=== PATIENT | male | born 1970 | race Hispanic/Latino ===

== ENCOUNTER 2018-07-29 21:59 | Emergency (ER) | payer OTHER ==
[~2018-07-29] VITALS: Ht 172.7 cm; Wt 145.1 kg
--- OUTSIDE RECORDS SUMMARY | 2018-07-29 22:02 | XMS REPORT | Clinical Summary ---
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 Active nitroglycerin Place 1 spray 0 (NITROLINGUAL) 400 under the mcg/spray spray tongue. Active Problems Not on file Social History Date Tobacco Use Types Packs/Day Years Used Never Smoker Alcohol Use Drinks/Week oz/Week Comments Yes 2 Sex Assigned at Date Recorded Not on file Industry Job Start Date Occupation Not on file Not on file Not on file Travel End Travel History Travel Start No recent travel history available. Last Filed Vital Signs Not on file Plan of Treatment Health Maintenance Due Date Last Done Comments INFLUENZA VACCINE 02/02/2018 Results Not on fileafter 07/28/2017 Insurance Payer Benefit Subscriber ID Type Phone Address Plan / Group [facility] MEDICAID [facility] xxxxxxxxx HMO COMM STAR+ [employer] (Home) [place] [address] Advance Directives Patient has advance care planning documents on file. For more information, ranel mccray contact: Colton Christianson [address] [place] [phone]
--- OUTSIDE RECORDS SUMMARY | 2018-07-29 22:02 | XMS REPORT | Clinical Summary ---
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 Active CALCIUM ORAL Take by 0 mouth. Active multivitamin per tablet Take 1 tablet 0 by mouth daily. Active esomeprazole (NEXIUM) 40 Take 40 mg by 0 MG capsule mouth daily. Active Problems Problem Noted Date Unstable angina 11/10/2016 Abnormal stress test 11/10/2016 Social History Date Tobacco Use Types Packs/Day Years Used Never Smoker Alcohol Use Drinks/Week oz/Week Comments Yes occasionally Sex Assigned at Date Recorded Not on file Industry Job Start Date Occupation Not on file Not on file Not on file Travel End Travel History Travel Start No recent travel history available. Last Filed Vital Signs Not on file Plan of Treatment Not on file Results Not on fileafter 07/28/2017 Insurance Payer Benefit Subscriber ID Type Phone Address Plan / Group MEDICAID - MEDICAID [facility] xxxxxxxxx Medicaid CARE COMM STAR Contracted PLAN Advance Directives For more information, please contact: [facility] [address] [place] [address] Date Inactivated Comments Code Status Date Activated 11/10/2016 5:47 PM Full Code 11/10/2016 6:39 AM This code status was determined by: Patient
--- OUTSIDE RECORDS SUMMARY | 2018-07-29 22:03 | XMS REPORT | Continuity of Care Document ---
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 [facility] Bipolar affective disorder, currently depressed, moderate Active 06/16/2002 Problem 12/19/2016 [facility] GERD - Gastro-esophageal reflux disease Active 06/16/1999 Problem 12/19/2016 [facility] Final: Unspecified abdominal pain 12/19/2016 [facility] DM - Diabetes mellitus Active Problem 12/19/2016 [facility] Gout Active Problem 12/19/2016 [facility] HTN - Hypertension Active Problem 12/19/2016 [facility] UNSPECIFIED ABDOMINAL PAIN Active [facility] BARIATRIC SURGERY STATUS Active [facility] VOMITING, UNSPECIFIED Active [facility] Medications Medication Details Route Status Patient Instructions Ordering Provider Order Date Source remove patch 1 patch, Route: TOP, Drug form: ERFILM, Q72H, Start date: 12/16/16 17:00:00 CDT, Duration: 30 day, Stop date: 01/12/17 17:00:00 CDT Inactive 12/16/2016 [facility] Esomeprazole 20 MG Enteric Coated Capsule [Nexium] 20 mg=1 cap, PO, Daily, 0 Refill(s) Active 12/14/2016 [facility] 72 HR Scopolamine 0.0139 MG/HR Transdermal Patch 1 patch, Route: TOP, Drug Form: ERFILM, Dosing Weight 145.455, kg, Q72H, PRN Nausea & Vomiting, Start date: 12/13/16 16:53:00 CDT, Duration: 30 day, Stop date: 01/12/17 16:52:00 CDTNotes: Change patch every 72 hours (Same as: Transderm- Scop) No Longer Active 12/13/2016 [facility] tramadol hydrochloride 50 MG Oral Tablet 100 mg, 2 tab, Route: PO, Drug form: TAB, Q6H, Dosing Weight 145.455, kg, Priority: NOW, Start date: 12/13/16 16:52:00 CDT, Duration: 30 day, Stop date: 01/12/17 12:00:00 CDTNotes: Not to exceed 400mg/day. (Same As: Ultram) No Longer Active 12/13/2016 [facility] Morphine 2 mg, 1 mL, Route: IVP, Drug form: INJ, Q4H, Dosing Weight 145.455, kg, PRN Pain Score 7-10, Start date: 12/13/16 16:51:00 CDT, Duration: 30 day, Stop date: 01/12/17 16:50:00 CDTNotes: (Same as:MORPhine Sulfate) No Longer Active 12/13/2016 [facility] Ofirmev 1,000 mg, 100 mL, Route: IV, Drug form: INJ, Q6H, Dosing Weight 145.455, kg, for > or=50 kg, Priority: NOW, Start date: 12/13/16 16:50:00 CDT, Duration: 48 hr, Stop date: 12/15/16 12:00:00 CDTNotes: Infuse over 15 minutes Do not exceed 4gm/day of acetaminophen MEDICATION WASTE Product Size: 1000 mg Product Wasted: ___ mg No Longer Active 12/13/2016 [facility] Dicyclomine 20 mg, 2 mL, Route: IM, Drug form: INJ, Q6H- 02, Dosing Weight 262, kg, Start date: 12/13/16 14:30:00 CDT, Duration: 2 day, Stop date: 12/15/16 14:00:00 CDTNotes: (Same as: Bentyl) No Longer Active 12/13/2016 [facility] Lactated Ringers 1,000 mL 1,000 mL, Rate: 100 ml/hr, Infuse over: 10 hr, Route: IV, Dosing Weight 262 kg, Total Volume: 1,000, Start date: 12/13/16 13:50:00 CDT, Duration: 30 day, Stop date: 01/12/17 13:49:00 CDT No Longer Active 12/13/2016 [facility] Zofran 4 mg, Route: IVP, Drug form: INJ, ONCE, Dosing Weight 262, kg, Priority: STAT, Start date: 12/13/16 13:04:00 CDT, Stop date: 12/13/16 13:04:00 CDT Inactive 12/13/2016 [facility] Famotidine 20 mg, 2 mL, Route: IVP, Drug form: INJ, ONCE, Dosing Weight 262, kg, Priority: STAT, Start date: 12/13/16 8:30:00 CDT, Stop date: 12/13/16 8:30:00 CDTNotes: (Same as: Pepcid) Can be dilute in 5-10cc NS IVP: Slow IV push over at least 2 minutes. Inactive 12/13/2016 [facility] Ondansetron 4 mg, 2 mL, Route: IVP, Drug form: INJ, ONCE, Dosing Weight 262, kg, Priority: STAT, Start date: 12/13/16 8:30:00 CDT, Stop date: 12/13/16 8:30:00 CDTNotes: (Same as: Zofran) MEDICATION WASTE Product Size: 4 mg Product Wasted: ___ mg Inactive 12/13/2016 [facility] Iohexol 130 mL, Route: IVP, Drug Form: SOLN, Dosing Weight 262, kg, ONCALL, STAT, Start date: 12/13/16 8:24:00 CDT, Duration: 1 doses or times, Dose=2.2ml/kg, Max ytzl=345lm -- "To be infused by Radiology Staff ONLY" Inactive 12/13/2016 [facility] Hydromorphone 1 mg, Route: IVP, ONCE, Dosing Weight 262, kg, Priority: STAT, Start date: 12/13/16 7:41:00 CDT, Stop date: 12/13/16 7:41:00 CDT Inactive 12/13/2016 [facility] Metoclopramide 10 mg, 2 mL, Route: IVP, Drug form: INJ, ONCE, Dosing Weight 262, kg, Priority: STAT, Start date: 12/13/16 7:23:00 CDT, Stop date: 12/13/16 7:23:00 CDTNotes: (Same as: Reglan) Inactive 12/13/2016 [facility] Sodium Chloride 0.154 MEQ/ML Injectable Solution 1,000 mL, 1000 ml/hr, Infuse Over: 1 hr, Route: IV, 1,000, Drug form: INJ, ONCE, Priority: STAT, Dosing Weight 262 kg, Start date: 12/13/16 5:04:00 CDT, Duration: 1 doses or times, Stop date: 12/13/16 5:04:00 CDT Inactive 12/13/2016 [facility] Hydromorphone 1 mg, 0.5 mL, Route: IVP, Drug form: INJ, ONCE, Dosing Weight 262, kg, Priority: STAT, Start date: 12/13/16 5:04:00 CDT, Stop date: 12/13/16 5:04:00 CDTNotes: Same as: Dilaudid Inactive 12/13/2016 [facility] Ondansetron 4 mg, 2 mL, Route: IVP, Drug form: INJ, ONCE, Dosing Weight 262, kg, Priority: STAT, Start date: 12/13/16 5:04:00 CDT, Stop date: 12/13/16 5:04:00 CDTNotes: (Same as: Zofran) MEDICATION WASTE Product Size: 4 mg Product Wasted: ___ mg Inactive 12/13/2016 [facility] Allergies, Adverse Reactions, Alerts Substance Category Reaction Severity Reaction type Status Date Reported Comments Source Immunizations Immunization Date Given Site Status Last Updated Comments Source Results Order Name Results Value Reference Range Date Interpretation Comments Source Abdomen AP DX Abdomen AP DX EXAM: XR ABDOMEN 1 VIEW DATE: 12/16/2016 9:00 AM CDT INDICATION: evaluate PSBO - evaluate PSBO COMPARISON: 12/15/2016, 0726 hours TECHNIQUE: AP view of the abdomen. FINDINGS: Again seen mildly gas distended small bowel loops in the left flank region, measuring 4.2 cm caliber previously measured 4.4 cm. Bowel: Normal caliber colon with gas seen in the rectosigmoid. Solid organs: No abnormal mass or organomegaly seen. No abnormal calcifications found. Bones: Unremarkable. IMPRESSION: Mildly gas distended small bowel loops with gas seen in the distal rectosigmoid suggesting ileus, improved from prior exam. 12/16/2016 - - Read by: Ned Her MD Dictated Date/time: 12/16/16 09:24 Electronically Signed by: Ned Her MD 12/16/16 09:25 FINAL REPORT [facility] Abdomen AP DX Abdomen AP DX EXAM: XR ABDOMEN 1 VIEW DATE: 12/15/2016 9:00 AM CDT INDICATION: evaluate PSBO - evaluate PSBO COMPARISON: 12/14/2016 TECHNIQUE: AP view of the abdomen. FINDINGS: Nasogastric suction tube sidehole in the fundus of the stomach. Bowel: Again seen mildly dilated proximal jejunal loops in the left upper quadrant and flank region measuring up to 4.4 cm in caliber, previously measured up to 5.2 cm. Normal caliber colon is noted with gas seen in the distal rectosigmoid. Solid organs: No abnormal mass or organomegaly seen. No abnormal calcifications found. Bones: Unremarkable. IMPRESSION: Interval improvement in small bowel ileus, the dilated proximal jejunal loops measuring up to 4.4 cm, previously 5.2 cm. 12/15/2016 - - Read by: Ned Her MD Dictated Date/time: 12/15/16 09:26 Electronically Signed by: Ned Her MD 12/15/16 09:28 FINAL REPORT [facility] Abdomen AP DX Abdomen AP DX EXAM: XR ABDOMEN 1 VIEW DATE: 12/14/2016 7:20 AM CDT INDICATION: Abdominal pain, acute - partial small bowel obstruction on CT ADDITIONAL INFORMATION: None. COMPARISON: Abdomen radiograph 12/13/2016, CT abdomen pelvis 12/13/2016 TECHNIQUE: AP view of the abdomen. FINDINGS: Lines, tubes and hardware: NG tube tip projects over the gastric antrum with the sidehole within the gastric lumen. Lower thorax: Unremarkable where visualized. Bowel: Persistent dilatation of small bowel loops with the largest measuring 5.5 cm, unchanged from yesterday. Differential air-fluid levels are seen in multiple locations. Residual enteric contrast from the contrast-enhanced CT on 12/13/2016 is now seen within the nondilated transverse and descending colon. Other abdominal organs: Minimal hepatosplenomegaly. Calcifications: No abnormal calcifications. Bones: No acute abnormality. Extraabdominal soft tissues: Normal. IMPRESSION: 1. Persistent, improving small bowel dilatation with differential air-fluid levels. Enteric contrast is seen within the colon, consistent with partial small bowel obstruction. 12/14/2016 - - This report was dictated by a Intelligence Officer/Fellow. I have personally reviewed the images as well as the Resident's interpretation and agree with the findings. Read by: Major Cabrera MD Resident: Major Cabrera MD Dictated Date/time: 12/14/16 09:58 Electronically Signed by: Bea Ortiz 12/14/16 12:09 FINAL REPORT [facility] CHEM PANEL Magnesium Lvl 2.6 mg/dL 1.8 - 2.4 12/14/2016 [facility] CHEM PANEL Phosphorus 3.5 mg/dL 2.5 - 4.5 12/14/2016 [facility] CHEM PANEL eGFR 129 mL/min/1.73m2 12/14/2016 Result Comment: The eGFR is calculated using the CKD-EPI formula. In most young, healthy individuals the eGFR will be >90 mL/min/1.73m2. The eGFR declines with age. An eGFR of 60-89 may be normal in some populations, particularly the elderly, for whom the CKD-EPI formula has not been extensively validated. Use of the eGFR is not recommended in the following populations: Individuals with unstable creatinine concentrations, including patients and those with serious co-morbid conditions. Patients with extremes in muscle mass or diet. The data above are obtained from the National Kidney Disease Education Program (NKDEP) which additionally recommends that when the eGFR is used in patients with extremes of body mass index for purposes of drug dosing, the eGFR should be multiplied by the estimated BMI. [facility] CHEM PANEL AGAP 10.7 meq/L 10.0 - 20.0 12/14/2016 [facility] CHEM PANEL CO2 26 meq/L 24 - 32 12/14/2016 [facility] CHEM PANEL Calcium Lvl 8.2 mg/dL 8.5 - 10.5 12/14/2016 [facility] CHEM PANEL Potassium Lvl 3.7 meq/L 3.5 - 5.1 12/14/2016 [facility] CHEM PANEL Chloride Lvl 106 meq/L 95 - 109 12/14/2016 [facility] CHEM PANEL Sodium Lvl 139 meq/L 135 - 145 12/14/2016 [facility] CHEM PANEL Creatinine Lvl 0.52 mg/dL 0.50 - 1.40 12/14/2016 [facility] CHEM PANEL BUN 15 mg/dL 7 - 22 12/14/2016 [facility] CHEM PANEL Glucose Lvl 90 mg/dL 70 - 99 12/14/2016 [facility] HEMATOLOGY MPV 9.4 fL 7.4 - 10.4 12/14/2016 [facility] HEMATOLOGY Platelet 145 K/CMM 133 - 450 12/14/2016 [facility] HEMATOLOGY MCH 29.8 pg 27.0 - 31.0 12/14/2016 [facility] HEMATOLOGY RDW 13.4 % 11.5 - 14.5 12/14/2016 [facility] HEMATOLOGY MCHC 33.8 g/dL 32.0 - 36.0 12/14/2016 [facility] HEMATOLOGY RBC 3.53 M/CMM 4.70 - 6.10 12/14/2016 [facility] HEMATOLOGY MCV 88.1 fL 80.0 - 94.0 12/14/2016 [facility] HEMATOLOGY Hgb 10.5 g/dL 14.0 - 18.0 12/14/2016 [facility] HEMATOLOGY Hct 31.1 % 42.0 - 54.0 12/14/2016 [facility] HEMATOLOGY WBC 7.0 K/CMM 3.7 - 10.4 12/14/2016 [facility] HEMATOLOGY Basophils 0.3 % 0.0 - 1.0 12/14/2016 [facility] HEMATOLOGY Monocytes 10.3 % 2.0 - 12.0 12/14/2016 [facility] HEMATOLOGY Eosinophils 0.7 % 0.0 - 4.0 12/14/2016 [facility] HEMATOLOGY Lymphocytes # 2.0 K/CMM 1.0 - 5.5 12/14/2016 [facility] HEMATOLOGY Segs-Bands # 4.2 K/CMM 1.5 - 8.1 12/14/2016 [facility] HEMATOLOGY Segs 59.6 % 45.0 - 75.0 12/14/2016 [facility] HEMATOLOGY Lymphocytes 29.1 % 20.0 - 40.0 12/14/2016 [facility] HEMATOLOGY Monocytes # 0.7 K/CMM 0.0 - 0.8 12/14/2016 [facility] SPECIAL CHEMISTRY Hgb A1C 4.9 % <=5.6 % 12/14/2016 [facility] Abdomen 1 v for Placement DX Abdomen 1 v for Placement DX EXAM: XR ABDOMEN 1 FRONTAL VIEW DATE: 12/13/2016 3:31 PM CDT INDICATION: - NGT repositioned ADDITIONAL INFORMATION: None. COMPARISON: KUB and CT abdomen pelvis 12/13/2016 at 1347 hours TECHNIQUE: Single frontal view of the abdomen. FINDINGS: Lines and tubes: Advancement of NG tube with distal tip overlying the distal stomach. Lower thorax: Unremarkable where visualized. Bowel: Gaseous distention and dilatation of small bowel loops overlying the left upper quadrant measuring up to 5.3 cm. Solid organs: No abnormal mass or organomegaly seen. Calcifications: No abnormal calcifications found. Bones: Unchanged. IMPRESSION: 1. NG tube as detailed. 2. Persistent partial small bowel obstruction with transition point in the region of the mid ileum better seen on prior CT exam. 12/13/2016 - - Read by: Rony Salazar MD Dictated Date/time: 12/14/16 08:33 Electronically Signed by: Rony Salazar MD 12/14/16 08:36 FINAL REPORT [facility] Abdomen AP DX Abdomen AP DX EXAM: XR ABDOMEN 1 VIEW DATE: 12/13/2016 1:19 PM CDT INDICATION: - eval for ngt ADDITIONAL INFORMATION: None. COMPARISON: None. TECHNIQUE: Limited AP view of the upper abdomen. FINDINGS: The tip of nasogastric tube appears just past the gastroesophageal junction. Recommend further advancement by at least 7-10 cm. IMPRESSION: The tip of nasogastric tube is just past gastroesophageal junction. Recommend further advancement by at least 7-10 cm. [place] SECTION: ER 12/13/2016 - - This report was dictated by a Intelligence Officer/Fellow. I have personally reviewed the images as well as the Resident's interpretation and agree with the findings. Read by: Paula Medina MD Resident: Paula Medina MD Dictated Date/time: 12/13/16 14:30 Electronically Signed by: Levi Montgomery MD 12/13/16 14:38 FINAL REPORT [facility] BLOOD BANK RESULTS ABO/Rh O POS 12/13/2016 [facility] BLOOD BANK RESULTS Antibody Scrn Negative (12/13/16 6:27 AM) 12/13/2016 [facility] CARDIAC ENZYMES Troponin-I null 0.00 - 0.40 12/13/2016 [facility] CHEM PANEL Phosphorus 3.8 mg/dL 2.5 - 4.5 12/13/2016 [facility] CHEM PANEL Magnesium Lvl 2.4 mg/dL 1.8 - 2.4 12/13/2016 [facility] CHEM PANEL Lipase Lvl 127 unit/L 73 - 393 12/13/2016 [facility] CHEM PANEL Lactic Acid Lvl 1.0 mMol/L 0.5 - 2.2 12/13/2016 [facility] CHEM PANEL eGFR 105 mL/min/1.73m2 12/13/2016 Result Comment: The eGFR is calculated using the CKD-EPI formula. In most young, healthy individuals the eGFR will be >90 mL/min/1.73m2. The eGFR declines with age. An eGFR of 60-89 may be normal in some populations, particularly the elderly, for whom the CKD-EPI formula has not been extensively validated. Use of the eGFR is not recommended in the following populations: Individuals with unstable creatinine concentrations, including patients and those with serious co-morbid conditions. Patients with extremes in muscle mass or diet. The data above are obtained from the National Kidney Disease Education Program (NKDEP) which additionally recommends that when the eGFR is used in patients with extremes of body mass index for purposes of drug dosing, the eGFR should be multiplied by the estimated BMI. [facility] CHEM PANEL Calcium Lvl 8.4 mg/dL 8.5 - 10.5 12/13/2016 [facility] CHEM PANEL CO2 27 meq/L 24 - 32 12/13/2016 [facility] CHEM PANEL Chloride Lvl 106 meq/L 95 - 109 12/13/2016 [facility] CHEM PANEL Potassium Lvl 3.9 meq/L 3.5 - 5.1 12/13/2016 [facility] CHEM PANEL Creatinine Lvl 0.87 mg/dL 0.50 - 1.40 12/13/2016 [facility] CHEM PANEL Sodium Lvl 138 meq/L 135 - 145 12/13/2016 [facility] CHEM PANEL BUN 15 mg/dL 7 - 22 12/13/2016 [facility] CHEM PANEL Glucose Lvl 131 mg/dL 70 - 99 12/13/2016 [facility] CHEM PANEL AGAP 8.9 meq/L 10.0 - 20.0 12/13/2016 [facility] HEMATOLOGY Lymphocytes 21.3 % 20.0 - 40.0 12/13/2016 [facility] HEMATOLOGY Monocytes 5.1 % 2.0 - 12.0 12/13/2016 [facility] HEMATOLOGY Segs 72.5 % 45.0 - 75.0 12/13/2016 [facility] HEMATOLOGY Eosinophils 0.7 % 0.0 - 4.0 12/13/2016 [facility] HEMATOLOGY Segs-Bands # 4.8 K/CMM 1.5 - 8.1 12/13/2016 [facility] HEMATOLOGY Lymphocytes # 1.4 K/CMM 1.0 - 5.5 12/13/2016 [facility] HEMATOLOGY Monocytes # 0.3 K/CMM 0.0 - 0.8 12/13/2016 [facility] HEMATOLOGY Basophils 0.4 % 0.0 - 1.0 12/13/2016 [facility] HEMATOLOGY PTT 31.0 s 22.9 - 35.8 12/13/2016 [facility] HEMATOLOGY PT 13.6 s 12.0 - 14.7 12/13/2016 [facility] HEMATOLOGY INR 1.02 0.85 - 1.17 12/13/2016 [facility] HEMATOLOGY Hct 36.8 % 42.0 - 54.0 12/13/2016 [facility] HEMATOLOGY RBC 4.16 M/CMM 4.70 - 6.10 12/13/2016 [facility] HEMATOLOGY Hgb 12.2 g/dL 14.0 - 18.0 12/13/2016 [facility] HEMATOLOGY WBC 6.7 K/CMM 3.7 - 10.4 12/13/2016 [facility] HEMATOLOGY RDW 13.5 % 11.5 - 14.5 12/13/2016 [facility] HEMATOLOGY Platelet 164 K/CMM 133 - 450 12/13/2016 [facility] HEMATOLOGY MCH 29.3 pg 27.0 - 31.0 12/13/2016 [facility] HEMATOLOGY MCHC 33.1 g/dL 32.0 - 36.0 12/13/2016 [facility] HEMATOLOGY MCV 88.5 fL 80.0 - 94.0 12/13/2016 [facility] HEMATOLOGY MPV 8.9 fL 7.4 - 10.4 12/13/2016 [facility] SPECIAL CHEMISTRY Hgb A1C 5.1 % <=5.6 % 12/13/2016 [facility] CHEM PANEL Alk Phos 70 unit/L 39 - 136 12/13/2016 [facility] CHEM PANEL Bili Indirect 0.4 mg/dL 0.0 - 1.0 12/13/2016 [facility] CHEM PANEL Bili Total 0.5 mg/dL 0.2 - 1.3 12/13/2016 [facility] CHEM PANEL Bili Direct 0.1 mg/dL 0.0 - 0.3 12/13/2016 [facility] CHEM PANEL Globulin 4.5 g/dL 2.7 - 4.2 12/13/2016 [facility] CHEM PANEL ALT 15 unit/L 0 - 65 12/13/2016 [facility] CHEM PANEL AST 18 unit/L 0 - 37 12/13/2016 [facility] CHEM PANEL A/G Ratio 0.8 0.7 - 1.6 12/13/2016 [facility] CHEM PANEL Total Protein 8.1 g/dL 6.4 - 8.4 12/13/2016 [facility] CHEM PANEL Albumin Lvl 3.6 g/dL 3.5 - 5.0 12/13/2016 [facility] Abdomen/Pelvis w IV contrast CT Abdomen/Pelvis w IV contrast CT EXAM: CT ABDOMEN AND PELVIS CONTRAST DATE: 12/13/2016 5:04 AM CDT. INDICATION: - gastric sleeve . ADDITIONAL INFORMATION: None. COMPARISON: CT abdomen pelvis 07/10/2012. TECHNIQUE: Volumetric CT acquisition of the abdomen and pelvis with IV contrast. Axial, coronal and sagittal reconstructions. Postcontrast phases: Portal venous and delayed. IV contrast: Omnipaque 350, 130 mL. Oral contrast: Gastrografin, diluted. DLP: 09/04/2002 mGy-cm. FINDINGS: Lines and tubes: None. Lower thorax: Motion decreases sensitivity. There is mild posterior basal dependent atelectasis. Liver: Mildly enlarged measuring 17 cm in length. Biliary tree: No intra- or extrahepatic biliary ductal dilation. Gallbladder: Normal. No CT evidence of gallstones. Pancreas: Normal. Spleen: Mildly enlarged measuring 12.9 cm in length. Adrenals: Normal. Kidneys and ureters: No focal lesions are seen. No filling defects are seen within the opacified portions of the collecting system. Bladder: Minimal wall thickening. Reproductive organs: No CT abnormality. Gastrointestinal tract: Status post gastric sleeve with no evidence for extravasation. The GE junction has a small hiatal hernia and is filled with positive enteric contrast. The duodenum, jejunum that are opacified are unremarkable. There is dilatation of loops of distal jejunum in the left upper quadrant measuring up to 4.1 cm. There is fecalization of the distal small bowel. The transition point appears to occur on series 7, image 82 and series 6, images 79 and 82. . The distal small bowel is decompressed to the level of the terminal ileum. The terminal ileum is unremarkable. Radiopaque pills are seen within the cecal region. The colon is otherwise unremarkable. Appendix: Not seen. Peritoneum and retroperitoneum: Small amount of fluid within the pelvis. No other fluid collection. Lymph nodes: Normal. Vasculature: There is mild dilatation of the main portal vein. There is a minimal recanalized umbilical vein. No varices are seen. Bones: Normal. Soft tissues: There is a moderate-sized umbilical fat-containing hernia with the neck measuring 1.6 cm and the hernia sac measuring 1.5 x 4.5 cm. IMPRESSION: 1. Partial small bowel obstruction with the transition point seen approximately within the mid ileum seen best on series 7, image 82 and series 6, images 79 and 82. Proximal to the obstruction there is sacralization. 2. Mild portal vein dilatation with minimal hepatosplenomegaly and recanalization of the umbilical vein and may suggest mild portal hypertension. 3. Small amount of fluid within the pelvis. 4. Small umbilical fat-containing hernia. 5. Post gastric sleeve changes. 12/13/2016 - - This report was dictated by a Intelligence Officer/Fellow. I have personally reviewed the images as well as the Resident's interpretation and agree with the findings. Read by: Paula Medina MD Resident: Paula Medina MD Dictated Date/time: 12/13/16 08:12 Electronically Signed by: Joel Bingham MD 12/13/16 09:33 FINAL REPORT [facility] Chest 1view DX Chest 1view DX EXAM: XR CHEST 1 VIEW DATE: 12/13/2016 at 0531 hours. INDICATION: Chest pain. COMPARISON: Chest radiograph 07/02/2012 TECHNIQUE: AP chest FINDINGS: Lines and tubes: None. Lungs and pleura: No pulmonary or pleural based abnormality is identified. Heart and mediastinum: The heart size is normal for technique. The mediastinal contours are normal. Bones: No acute bony abnormality is identified. IMPRESSION: No acute cardiopulmonary abnormality. [place] SECTION: ER 12/13/2016 - - This report was dictated by a Intelligence Officer/Fellow. I have personally reviewed the images as well as the Resident's interpretation and agree with the findings. Read by: Josh Tran MD Resident: Josh Tran MD Dictated Date/time: 12/13/16 05:34 Electronically Signed by: Amita Roman MD 12/13/16 06:55 FINAL REPORT [facility] Vital Signs Vital Sign Value Date Comments Source Heart Rate 50 12/16/2016 [facility] Temperature Oral (F) 98.1 F 12/16/2016 [facility] Respitory Rate 18 12/16/2016 [facility] Systolic (mm Hg) 121 12/16/2016 [facility] Diastolic (mm Hg) 83 12/16/2016 [facility] Systolic (mm Hg) 121 12/16/2016 [facility] Diastolic (mm Hg) 84 12/16/2016 [facility] Respitory Rate 18 12/16/2016 [facility] Temperature Oral (F) 98.5 F 12/16/2016 [facility] Heart Rate 57 12/16/2016 [facility] Temperature Oral (F) 98.4 F 12/16/2016 [facility] Respitory Rate 20 12/16/2016 [facility] [facility] Heart Rate 55 12/16/2016 [facility] Systolic (mm Hg) 96 12/16/2016 [facility] Diastolic (mm Hg) 65 12/16/2016 [facility] Weight 145.455 12/13/2016 [facility] BMI Calculated 46.01 12/13/2016 [facility] Height 177.8 cm 12/13/2016 [facility] Encounters Location Location Details Encounter Type Encounter Number Reason For Visit Attending Provider ADM Date DC Date Status Source [facility] Inpatient [id number] Carmelitasheila Montelongo 12/13/2016 12/16/2016 [facility] Procedures Procedure Code Date Perfomer Comments Source Appendectomy [id number] 07/05/1979 [facility] Sleeve gastrectomy with duodenal switch [id number] [facility]
--- OUTSIDE RECORDS SUMMARY | 2018-07-29 22:03 | XMS REPORT | Summary of Care ---
Author Author [facility] Organization [facility] Address Unknown Phone Unavailable Encounter SAURABH Garcia(ARTIS) [id number] Date(s): 12/13/16 - 12/16/16 [facility] [address] [facility] provided by [facility] [employer] [facility] [employer] [place] [facility] [place] [address]- Final: Unspecified abdominal pain Discharge Disposition: Home or Self Care Attending Physician: Ambar Cabrera MD Admitting Physician: Carmelita Montelongo MD Vital Signs 1 2 3 Most recent to oldest [Reference Range]: 177.8 cm (12/13/16 2:52 PM) Height 98.1 DegF (12/16/16 4:05 PM) 98.5 DegF (12/16/16 12:27 PM) 98.4 DegF (12/16/16 7:49 AM) Temperature Oral [96.4-99.1 DegF] 121/83 mmHg (12/16/16 4:05 PM) 121/84 mmHg (12/16/16 12:27 PM) 96/65 mmHg (12/16/16 7:49 AM) Blood Pressure [90-140/60-90 mmHg] 18 BRMIN (12/16/16 4:05 PM) 18 BRMIN (12/16/16 12:27 PM) 20 BRMIN (12/16/16 7:49 AM) Respiratory Rate [14-20 BRMIN] 50 bpm *LOW* (12/16/16 4:05 PM) 57 bpm *LOW* (12/16/16 12:27 PM) 55 bpm *LOW* (12/16/16 7:49 AM) Peripheral Pulse Rate [60-100 bpm] 145.455 kg (12/13/16 2:52 PM) Weight 46.01 m2 (12/13/16 2:52 PM) Body Mass Index Problem List Condition Effective Dates Status Health Status Informant Bipolar affective 06/16/02 Active disorder, currently depressed, moderate(Confirmed) DM - Diabetes Active mellitus(Confirmed) GERD - 06/16/99 Active Gastro-esophageal reflux disease(Confirmed) Gout(Confirmed) Active HTN - Active Hypertension(Confirm ed) VRE(Confirmed)1, 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 Allergies, Adverse Reactions, Alerts Substance Reaction Severity Status NKDA Active Medications dicyclomine 20 mg, 2 mL, Route: IM, Drug form: INJ, Q6H-02, Dosing Weight 262, kg, Start jah e: 12/13/16 14:30:00 CDT, Duration: 2 day, Stop date: 12/15/16 14:00:00 CDT Notes: (Same as: Orville) Start Date: 12/13/16 Stop Date: 12/15/16 Status: Completed famotidine 20 mg, 2 mL, Route: IVP, Drug form: INJ, ONCE, Dosing Weight 262, kg, Priority: STAT, Start date: 12/13/16 8:30:00 CDT, Stop date: 12/13/16 8:30:00 CDT Notes: (Same as: Pepcid)Can be dilute in 5-10cc NS IVP: Slow IV push over at le ast 2 minutes. Start Date: 12/13/16 Stop Date: 12/13/16 Status: Completed hydromorphone 1 mg, Route: IVP, ONCE, Dosing Weight 262, kg, Priority: STAT, Start date: 12/13 7:41:00 CDT, Stop date: 12/13/16 7:41:00 CDT Start Date: 12/13/16 Stop Date: 12/13/16 Status: Completed hydromorphone 1 mg, 0.5 mL, Route: IVP, Drug form: INJ, ONCE, Dosing Weight 262, kg, Priority: STAT, Start date: 12/13/16 5:04:00 CDT, Stop date: 12/13/16 5:04:00 CDT Notes: Same as: Dilaudid Start Date: 12/13/16 Stop Date: 12/13/16 Status: Completed Lactated Ringers 1,000 mL 1,000 mL, Rate: 100 ml/hr, Infuse over: 10 hr, Route: IV, Dosing Weight 262 kg, Total Volume: 1,000, Start date: 12/13/16 13:50:00 CDT, Duration: 30 day, Stop d ate: 01/12/17 13:49:00 CDT Start Date: 12/13/16 Stop Date: 12/16/16 Status: Discontinued metoclopramide 10 mg, 2 mL, Route: IVP, Drug form: INJ, ONCE, Dosing Weight 262, kg, Priority: STAT, Start date: 12/13/16 7:23:00 CDT, Stop date: 12/13/16 7:23:00 CDT Notes: (Same as: Reglan) Start Date: 12/13/16 Stop Date: 12/13/16 Status: Completed morphine Sulfate 2 mg, 1 mL, Route: IVP, Drug form: INJ, Q4H, Dosing Weight 145.455, kg, PRN Pain Score 7-10, Start date: 12/13/16 16:51:00 CDT, Duration: 30 day, Stop date: 05/21 16:50:00 CDT Notes: (Same as:MORPhine Sulfate) Start Date: 12/13/16 Stop Date: 12/16/16 Status: Discontinued NexIUM OTC 20 mg oral delayed release capsule 20 mg=1 cap, PO, Daily, 0 Refill(s) Start Date: 12/14/16 Status: Ordered Ofirmev 1,000 mg, 100 mL, Route: IV, Drug form: INJ, Q6H, Dosing Weight 145.455, kg, for > or=50 kg, Priority: NOW, Start date: 12/13/16 16:50:00 CDT, Duration: 48 hr, Stop date: 12/15/16 12:00:00 CDT Notes: Infuse over 15 minutesDo not exceed 4gm/day of acetaminophen MEDICAT ION WASTE Product Size: 1000 mgProduct Wasted: ___ mg Start Date: 12/13/16 Stop Date: 12/15/16 Status: Completed Omnipaque 350mg/ml 130 mL, Route: IVP, Drug Form: SOLN, Dosing Weight 262, kg, ONCALL, STAT, Start date: 12/13/16 8:24:00 CDT, Duration: 1 doses or times, Dose=2.2ml/kg, Max dose =150ml -- "To be infused by Radiology Staff ONLY" Start Date: 12/13/16 Stop Date: 12/13/16 Status: Completed ondansetron 4 mg, 2 mL, Route: IVP, Drug form: INJ, ONCE, Dosing Weight 262, kg, Priority: S TAT, Start date: 12/13/16 8:30:00 CDT, Stop date: 12/13/16 8:30:00 CDT Notes: (Same as: Barbara) MEDICATION WASTE Product Size: 4 mgProduct Was zoila: ___ mg Start Date: 12/13/16 Stop Date: 12/13/16 Status: Completed ondansetron 4 mg, 2 mL, Route: IVP, Drug form: INJ, ONCE, Dosing Weight 262, kg, Priority: S TAT, Start date: 12/13/16 5:04:00 CDT, Stop date: 12/13/16 5:04:00 CDT Notes: (Same as: Barbara) MEDICATION WASTE Product Size: 4 mgProduct Was zoila: ___ mg Start Date: 12/13/16 Stop Date: 12/13/16 Status: Completed remove patch 1 patch, Route: TOP, Drug form: ERFILM, Q72H, Start date: 12/16/16 17:00:00 CDT, Duration: 30 day, Stop date: 01/12/17 17:00:00 CDT Start Date: 12/16/16 Stop Date: 12/16/16 Status: Discontinued scopolamine 1.5 mg transdermal film 1 patch, Route: TOP, Drug Form: ERFILM, Dosing Weight 145.455, kg, Q72H, PRN Sergio sea & Vomiting, Start date: 12/13/16 16:53:00 CDT, Duration: 30 day, Stop date: 01/12/17 16:52:00 CDT Notes: Change patch every 72 hours (Same as: Transderm-Scop) Start Date: 12/13/16 Stop Date: 12/16/16 Status: Discontinued Sodium Chloride 0.9% (Bolus) IV 1,000 mL, 1000 ml/hr, Infuse Over: 1 hr, Route: IV, 1,000, Drug form: INJ, ONCE, Priority: STAT, Dosing Weight 262 kg, Start date: 12/13/16 5:04:00 CDT, Aureliano n: 1 doses or times, Stop date: 12/13/16 5:04:00 CDT Start Date: 12/13/16 Stop Date: 12/13/16 Status: Completed tramadol 50 mg oral tablet 100 mg, 2 tab, Route: PO, Drug form: TAB, Q6H, Dosing Weight 145.455, kg, Priori ty: NOW, Start date: 12/13/16 16:52:00 CDT, Duration: 30 day, Stop date: 7 12:00:00 CDT Notes: Not to exceed 400mg/day. (Same As: Ultram) Start Date: 12/13/16 Stop Date: 12/16/16 Status: Discontinued Zofran 4 mg, Route: IVP, Drug form: INJ, ONCE, Dosing Weight 262, kg, Priority: STAT, S tart date: 12/13/16 13:04:00 CDT, Stop date: 12/13/16 13:04:00 CDT Start Date: 12/13/16 Stop Date: 12/13/16 Status: Completed Results BLOOD BANK RESULTS Most recent to 1 2 oldest [Reference Range]: ABO/Rh O POS *Unknown* (12/13/16 6:27 AM) Antibody Scrn Negative (12/13/16 6:27 AM) ELECTROLYTES Most recent to 1 2 oldest [Reference Range]: Sodium Lvl [135-145 139 mEq/L 138 mEq/L mEq/L] (12/14/16 3:52 AM) (12/13/16 5:42 AM) Potassium Lvl 3.7 mEq/L 3.9 mEq/L [3.5-5.1 mEq/L] (12/14/16 3:52 AM) (12/13/16 5:42 AM) Chloride Lvl [95-109 106 mEq/L 106 mEq/L mEq/L] (12/14/16 3:52 AM) (12/13/16 5:42 AM) CO2 [24-32 mEq/L] 26 mEq/L 27 mEq/L (12/14/16 3:52 AM) (12/13/16 5:42 AM) AGAP [10.0-20.0 10.7 mEq/L 8.9 mEq/L mEq/L] (12/14/16 3:52 AM) *LOW* (12/13/16 5:42 AM) CHEM PANEL Most recent to 1 2 oldest [Reference Range]: Creatinine Lvl 0.52 mg/dL 0.87 mg/dL [0.50-1.40 mg/dL] (12/14/16 3:52 AM) (12/13/16 5:42 AM) eGFR 129 mL/min/1.73m2 1 105 mL/min/1.73m2 2 *NA* *NA* (12/14/16 3:52 AM) (12/13/16 5:42 AM) BUN [7-22 mg/dL] 15 mg/dL 15 mg/dL (12/14/16 3:52 AM) (12/13/16 5:42 AM) Glucose Lvl [70-99 90 mg/dL 131 mg/dL mg/dL] (12/14/16 3:52 AM) *HI* (12/13/16 5:42 AM) Total Protein 8.1 g/dL [6.4-8.4 g/dL] (12/13/16 5:05 AM) Albumin Lvl [3.5-5.0 3.6 g/dL g/dL] (12/13/16 5:05 AM) Globulin [2.7-4.2 4.5 g/dL g/dL] *HI* (12/13/16 5:05 AM) A/G Ratio [0.7-1.6] 0.8 (12/13/16 5:05 AM) Calcium Lvl 8.2 mg/dL 8.4 mg/dL [8.5-10.5 mg/dL] *LOW* *LOW* (12/14/16 3:52 AM) (12/13/16 5:42 AM) Phosphorus [2.5-4.5 3.5 mg/dL 3.8 mg/dL mg/dL] (12/14/16 3:52 AM) (12/13/16 5:42 AM) Magnesium Lvl 2.6 mg/dL 2.4 mg/dL [1.8-2.4 mg/dL] *HI* (12/13/16 5:42 AM) (12/14/16 3:52 AM) ALT [0-65 unit/L] 15 unit/L (12/13/16 5:05 AM) AST [0-37 unit/L] 18 unit/L (12/13/16 5:05 AM) Alk Phos [39-136 70 unit/L unit/L] (12/13/16 5:05 AM) Bili Total [0.2-1.3 0.5 mg/dL mg/dL] (12/13/16 5:05 AM) Bili Direct [0.0-0.3 0.1 mg/dL mg/dL] (12/13/16 5:05 AM) Bili Indirect 0.4 mg/dL [0.0-1.0 mg/dL] (12/13/16 5:05 AM) Lipase Lvl [73-393 127 unit/L unit/L] (12/13/16 5:42 AM) Lactic Acid Lvl 1.0 mMol/L [0.5-2.2 mMol/L] (12/13/16 5:42 AM) 1Result Comment: The eGFR is calculated using the [...] from the National Kidney Disease Education Program ( NKDEP) which additionally recommends that when the eGFR is used in patients with extremes of body mass index for purposes of drug dosing, the eGFR should be mul tiplied by the estimated BMI. 2Result Comment: The eGFR is calculated using the [...] from the National Kidney Disease Education Program ( NKDEP) which additionally recommends that when the eGFR is used in patients with extremes of body mass index for purposes of drug dosing, the eGFR should be mul tiplied by the estimated BMI. CARDIAC ENZYMES Most recent to 1 2 oldest [Reference Range]: Troponin-I <0.02 ng/mL [0.00-0.40 ng/mL] (12/13/16 5:42 AM) SPECIAL CHEMISTRY Most recent to 1 2 oldest [Reference Range]: Hgb A1C [<=5.6 %] 4.9 % 5.1 % (12/14/16 3:52 AM) (12/13/16 5:42 AM) HEMATOLOGY Most recent to 1 2 oldest [Reference Range]: WBC [3.7-10.4 K/CMM] 7.0 K/CMM 6.7 K/CMM (12/14/16 3:52 AM) (12/13/16 5:42 AM) RBC [4.70-6.10 3.53 M/CMM 4.16 M/CMM M/CMM] *LOW* *LOW* (12/14/16 3:52 AM) (12/13/16 5:42 AM) Hgb [14.0-18.0 g/dL] 10.5 g/dL 12.2 g/dL *LOW* *LOW* (12/14/16 3:52 AM) (12/13/16 5:42 AM) Hct [42.0-54.0 %] 31.1 % 36.8 % *LOW* *LOW* (12/14/16 3:52 AM) (12/13/16 5:42 AM) MCV [80.0-94.0 fL] 88.1 fL 88.5 fL (12/14/16 3:52 AM) (12/13/16 5:42 AM) MCH [27.0-31.0 pg] 29.8 pg 29.3 pg (12/14/16 3:52 AM) (12/13/16 5:42 AM) MCHC [32.0-36.0 33.8 g/dL 33.1 g/dL g/dL] (12/14/16 3:52 AM) (12/13/16 5:42 AM) RDW [11.5-14.5 %] 13.4 % 13.5 % (12/14/16 3:52 AM) (12/13/16 5:42 AM) Platelet [133-450 145 K/CMM 164 K/CMM K/CMM] (12/14/16 3:52 AM) (12/13/16 5:42 AM) MPV [7.4-10.4 fL] 9.4 fL 8.9 fL (12/14/16 3:52 AM) (12/13/16 5:42 AM) Segs [45.0-75.0 %] 59.6 % 72.5 % (12/14/16 3:52 AM) (12/13/16 5:42 AM) Lymphocytes 29.1 % 21.3 % [20.0-40.0 %] (12/14/16 3:52 AM) (12/13/16 5:42 AM) Monocytes [2.0-12.0 10.3 % 5.1 % %] (12/14/16 3:52 AM) (12/13/16 5:42 AM) Eosinophils [0.0-4.0 0.7 % 0.7 % %] (12/14/16 3:52 AM) (12/13/16 5:42 AM) Basophils [0.0-1.0 0.3 % 0.4 % %] (12/14/16 3:52 AM) (12/13/16 5:42 AM) Segs-Bands # 4.2 K/CMM 4.8 K/CMM [1.5-8.1 K/CMM] (12/14/16 3:52 AM) (12/13/16 5:42 AM) Lymphocytes # 2.0 K/CMM 1.4 K/CMM [1.0-5.5 K/CMM] (12/14/16 3:52 AM) (12/13/16 5:42 AM) Monocytes # [0.0-0.8 0.7 K/CMM 0.3 K/CMM K/CMM] (12/14/16 3:52 AM) (12/13/16 5:42 AM) PT [12.0-14.7 13.6 seconds seconds] (12/13/16 5:42 AM) INR [0.85-1.17] 1.02 (12/13/16 5:42 AM) PTT [22.9-35.8 31.0 seconds seconds] (12/13/16 5:42 AM) Immunizations No data available for this section Procedures Procedure Date Related Diagnosis Body Site Appendectomy 1979 Sleeve gastrectomy with duodenal switch Social History Social History Type Response Alcohol Current, Type Beer. Frequency: 1-2 times per year. Smoking Status Never smoker; Ready to change: No; Concerns about tobacco use in household: No; Exposure to Tobacco Smoke None; Cigarette Smoking Last 365 Days No; Reg Smoking Cessation Counseling No Assessment and Plan Extracted from: Title: surgery Author: Scot Bustillo MD Date: 12/16/16 Impression and Plan PSBO has resolved. To be discharged home. He will f/u with me in 2 weeks. Extracted from: Title: History and Physical Author: Carmelita Montelongo MD Date: 12/13/16 Assessment/Plan 46 y/o Obese M smoker with DM type 2 (controlled by diet) presents with acute onset abdominal pain with nausea and vomiting, 2/2 partial small bowel obstruction. 1.Partial bowel obstruction - as seenon abdominal CT - place NG tube stat. - Once position confirmed on Xray, start intermittent suction. -start multimodal pain control with acetaminophen 1gm q6hrs, with dicyclomine - start bowel regimen with senna, colace and miralax (although patient reports regular BM this morning) - Keep NPO for now - start IVF with Ringer's lactate ul055ou/hr 2.Abdominal pain, acute - management as above Ordered: Admit/Condition 3.Vomiting -start zofran 4mgIVP q8hprn - NGT towall suctiononce placed Ordered: Admit/Condition 4.History of gastric restrictive surgery - Dr. Bustillo consulted. Will f/u recommendations - gastric sleevein January 2016 - NPO for now Ordered: Admit/Condition 5.Obesity - same as above 6.HTN - Hypertension - denies any hx of hypertension, although amlodipine and lisinoprilnoted on last labs - lifestyle modification advised - likely 2/2 pain at present. Controlpain as above 7.DM - Diabetes mellitus -diet controlled, noton any medications -HbA1c 5.1 - NPO for now 8.Smoker - counselled forcessation 9.Anemia - no active e/o bleed - continue to monitor H/H - outpatient w/u Prophylaxis b/l SCDs Disposition pending stabilization
--- OUTSIDE RECORDS SUMMARY | 2018-07-29 22:03 | XMS REPORT ---
Author Author [facility] Address Unknown Phone Unavailable Care Team Providers Care Wardrobe Custodian Name Role Phone ELIOT, NEHA GREENBERG Unavailable Unavailable Noman Blackmon Unavailable Unavailable Problems This patient has no known problems. Allergies, Adverse Reactions, Alerts This patient has no known allergies or adverse reactions. Medications This patient has no known medications. Results Test Description Test Time Test Comments Text Results Atomic Results Result Comments BASIC METABOLIC PANEL 2016-11-10 07:35:00 SODIUM (BEAKER) (test zkis=619) 141 meq/L 135-148 POTASSIUM (BEAKER) (test lufj=103) 3.8 meq/L 3.6-5.5 Specimen slightly hemolyzed CHLORIDE (BEAKER) (test chky=697) 108 meq/L 98-106 CO2 (BEAKER) (test arld=084) 23 meq/L 20-29 BLOOD UREA NITROGEN (BEAKER) (test mwdw=097) 14 mg/dL 10-26 CREATININE (BEAKER) (test rgep=407) 0.75 mg/dL 0.50-1.20 Specimen slightly hemolyzed GLUCOSE RANDOM (BEAKER) (test agxh=402) 90 mg/dL 70-110 CALCIUM (BEAKER) (test eolq=553) 8.7 mg/dL 8.5-10.5 EGFR (BEAKER) (test qqpc=8480) 113 mL/min/1.73 sq m ESTIMATED GFR IS NOT ACCURATE CREATININE CLEARANCE IN PREDICTING GLOMERULAR FILTRATION RATE. ESTIMATED GFR IS NOT APPLICABLE FOR DIALYSIS PATIENTS. [id number] 07:31:00* Test Item Value Reference Range Comments PARTIAL THROMBOPLASTIN TIME (BEAKER) (test miez=139) 21.8 seconds 25.8-34.5 PROTHROMBIN TIME/[id number] 07:29:00* Test Item Value Reference Range Comments PROTIME (BEAKER) (test xenk=558) 10.4 seconds 9.8-12.0 INR (BEAKER) (test msja=835) 1.0 <=5.9 RECOMMENDED COUMADIN/WARFARIN INR THERAPY RANGESSTANDARD DOSE: 2.0 - 3.0 Inclu fan: PROPHYLAXIS for venous thrombosis, systemic embolization; TREATMENT for twila ous thrombosis and/or pulmonary embolus.HIGH RISK: Target INR is 2.5-3.5 for pat ients with mechanical heart valves.CBC (HEMOGRAM ONLY)2016-11-10 07:16:00* Test Item Value Reference Range Comments WHITE BLOOD CELL COUNT (BEAKER) (test dwky=505) 6.9 K/ L 4.0-10.0 RED BLOOD CELL COUNT (BEAKER) (test ajeb=207) 4.06 M/ L 4.20-5.80 HEMOGLOBIN (BEAKER) (test awes=550) 12.0 GM/DL 13.0-16.8 HEMATOCRIT (BEAKER) (test iarv=976) 36.5 % 40.0-50.0 MEAN CORPUSCULAR VOLUME (BEAKER) (test gmfd=713) 89.9 fL 82.0-98.0 MEAN CORPUSCULAR HEMOGLOBIN (BEAKER) (test thth=985) 29.6 pg 27.0-33.0 MEAN CORPUSCULAR HEMOGLOBIN CONC (BEAKER) (test fkne=638) 32.9 GM/DL 32.0-36.0 RED CELL DISTRIBUTION WIDTH (BEAKER) (test nvug=016) 13.8 % 10.3-14.2 PLATELET COUNT (BEAKER) (test jwoc=805) 180 K/CU MM 150-430 MEAN PLATELET VOLUME (BEAKER) (test ohan=955) 11.6 fL 6.5-10.5 [place] [id number] 08:27:00>100,000 CFU/ML.^>100,000 CFU/ML.^LUrine culture 2016-11-05 08:27:00* Test Item Value Reference Range Comments Urine culture (test sxki=179-0) 4+ GRAM NEGATIVE RODS. Urine culture (test ashe=018-82) ESCHERICHIA COLI Urine culture (test xnli=061-8) Escherichia coli Trimethoprim/sulfamethoxazole susceptibility test by minimum inhibitory concentration (test qorc=393-2) Tetracycline susceptibility test by minimum inhibitory concentration (test hhhk=885-3) Nitrofurantoin susceptibility test by minimum inhibitory concentration (test delk=341-7) Amoxicillin/clavulanate susceptibility test by minimum inhibitory concentration (test code=20-8) Gentamycin susceptibility test by minimum inhibitory concentration (test ppbd=312-6) Ampicillin susceptibility test by minimum inhibitory concentration (test code=28-1) Cefazolin susceptibility test by minimum inhibitory concentration (test code=76-0) Cephalothin susceptibility test by minimum inhibitory concentration (test ypbe=797-6) Cefoxitin susceptibility test by minimum inhibitory concentration (test hcfn=799-5) Cefotaxime susceptibility test by minimum inhibitory concentration (test hemt=345-9) Cefuroxime susceptibility test by minimum inhibitory concentration (test jtsk=70667-7) Cefotetan susceptibility test by minimum inhibitory concentration (test nius=240-9) Levofloxacin susceptibility test by minimum inhibitory concentration (test qxwn=71889-3) Ceftriaxone susceptibility test by minimum inhibitory concentration (test baka=627-3) Ampicillin/sulbactam susceptibility test by minimum inhibitory concentration (test code=32-3) Aztreonam susceptibility test by minimum inhibitory concentration (test code=44-8) Ceftazidime susceptibility test by minimum inhibitory concentration (test zzaw=839-0) Ticarcillin/clavulanate susceptibility test by minimum inhibitory concentration (test bebf=015-5) Tobramycin susceptibility test by minimum inhibitory concentration (test semj=963-0) Piperacillin/tazobactam susceptibility test by minimum inhibitory concentration (test uedw=446-0) Cefepime susceptibility test by minimum inhibitory concentration (test xqiu=0175-1) Ciprofloxacin susceptibility test by minimum inhibitory concentration (test zqcp=889-0) Meropenem susc ZEINA (test yvug=8808-1) Amikacin susceptibility test by minimum inhibitory concentration (test code=12-5) Urine dipstick testing at nwclq-af-nyaw9086-05-02 20:46:00* Test Item Value Reference Range Comments Urine specific gravity measurement (test bzuq=9436-6) >1.030 1.005-1.030 Urine glucose detection (test ejrp=0046-1) Negative NEG Urine Ketones (test code=UKET) NEGATIVE NEG Urine blood detection (test ayjt=02613-7) TRACE NEG Urine pH (test yyec=4858-1) 6.0 5.0-7.0 Urinalysis with microscopy (test uccr=43569-6) 1+ NEG Urine nitrate measurement (test nvsf=64011-2) POSITIVE NEG Urine Leukocyte Esterase (test code=UESTR) TRACE NEG Comment Bed:2 CB TRACE NEG NEG TRACE POS 6.0 1+ Y >1.030Microscopic examination of [id number] 20:12:00* Test Item Value Reference Range Comments Urine WBC (test code=UWBC) 10-20 <5 Urine sediment erythrocyte count by microscopy (number/high power field) (test vccf=38785-6) <5 NONE SEEN Bacteria detection in urine sediment by light microscopy (test niba=30588-0) >50 NONE SEEN Sqamous Epithelial (test code=SQEP) 5-10 NONE SEEN Urinalysis with reflex to culture (test kfdh=28983-2) REFLEXED Comment Bed:2Basic Metabolic Tdgdo0410-48-01 19:06:00* Test Item Value Reference Range Comments Sodium level (test drnw=AZI7991) 145 meq/L 135-145 3.3 Chloride measurement (test mwhc=HIN0402) 108 meq/L 101-111 Bicarbonate (test code=CO2) 27 meq/L 21-31 Glucose measurement (test kirs=ZUB3929) 89 mg/dL 65-120 ADA Clinical Practice Recommendation: <100 mg/dl=Normal Fasting Glucose BUN Bld-mCnc (test xwjc=5223-4) 17 mg/dL 6-20 Creatinine measurement (test guoj=HYU6920) 0.85 mg/dL 0.61-1.24 The creatinine method used has been calibrated to be traceable to Isotope dilution Mass Spectrometry (IDMS). For more information: www.nkdep.nih.gov Estimated glomerular filtration rate (GFR) determination (test gnfw=36317-7) >90 mL =/>90 FOR CHRONIC KIDNEY DISEASE: GFR STAGE DESCRIPTION=/>90 STAGE 1 NORMAL--OR-- MINIMAL KIDNEY DAMAGE WITH NORMAL GFR 60-89 STAGE 2 MILD DECREASE IN GFR 30-59 STAGE 3 MODERATE DECREASE IN GFR 15-29 STAGE 4 SEVERE DECREASE IN GFR <15 STAGE 5 KIDNEY FAILURE The Glomerular Filtration Rate (GFR) has been calculated using the IDMS-Traceable MDRD Study Equation. Calcium Level (test code=CA) 9.0 mg/dL 8.5-10.5 Creatine Rtylgdgywrsot8599-64-45 19:06:00* Test Item Value Reference Range Comments Creatine Phosphokinase (test code=CPK) 181 [iU]/L 22-269 CKMB Creatine Kinase [id number] 19:06:00* Test Item Value Reference Range Comments CKMB Creatine Kinase MB (test code=CKMB) 3.5 ng/mL 0.3-4.0 Magnesium ljbmgwajzjn4979-05-52 19:06:00* Test Item Value Reference Range Comments Magnesium measurement (test uaja=82216-1) 2.3 mg/dL 1.8-2.5 Brain natriuretic peptide (BNP) tfsiljbyxui9419-05-78 18:46:00* Test Item Value Reference Range Comments Brain natriuretic peptide (BNP) measurement (test rjii=07676-4) 28 pg/mL <=100 Troponin (Emerg Dept Use Only)2016-11-03 18:44:00* Test Item Value Reference Range Comments Troponin (Emerg Dept Use Only) (test code=TROPED) 0.03 ng/mL <0.03 Comment Bed:2 Test Ordered to Rule Out VTE/DVT? NProthrombin time (PT) with international normalized ratio (INR)2016-11-03 18:40:00* Test Item Value Reference Range Comments PT Prothrombin Time (test code=PROTIME) 11.8 s 9.5-12.5 INR in Blood by Coagulation assay (test sepq=02436-0) 1.04 Monitor pts using INR value (not prothrombin time) INR Coumadin Therapy: Low Range (prophylaxis) 2.0-3.0 High Range (high risk of clot formation) 2.5-3.5 Test Ordered to Rule Out VTE/DVT? N Test Ordered to Rule Out VTE/DVT? N Test Ord ered to Rule Out VTE/DVT? N Test Ordered to Rule Out VTE/DVT? NPTT, Activated Partial [id number] 18:40:00* Test Item Value Reference Range Comments PTT, Activated Partial Thromb (test code=PTT) 20.9 s 24.3-36.9 Test Ordered to Rule Out VTE/DVT? N Test Ordered to Rule Out VTE/DVT? N Test Ord ered to Rule Out VTE/DVT? N Test Ordered to Rule Out VTE/DVT? NComplete blood count (CBC) with automated white blood cell (WBC) [id number] 18:25:00* Test Item Value Reference Range Comments White blood cell count (test djll=[id number]) 7.4 4.3-10.9 Blood erythrocytes count (number/volume) (test kimv=49526-6) 3.93 M/ul 4.33-5.43 Hemoglobin measurement (test gpky=UVL5032) 11.5 g/dL 13.6-17.9 Blood hematocrit (volume fraction) (test jjkj=39201-0) 34.6 % 39.6-49.0 MCV (test rcpf=06372-6) 87.9 fL 80-100 MCH (test uzbn=72392-3) 29.3 pg 27.0-35.0 MCHC (test code=MCHC) 33.3 g/dL 32.0-36.0 Platelets (test code=PLT) 169 152-406 Red Cell Distribution Width (test code=RDW) 14.0 % 12.1-15.2 Blood platelet mean volume (test ogzb=61953-2) 9.6 fL 7.6-11.3 Neutrophils % (test code=DIGNA%) 54.8 % 41.7-73.7 Lymphocytes/leuk NFr Bld (test gbun=14242-6) 37.4 % 15.3-44.8 Monocyte percentage (test ivlz=1356-9) 6.1 % 3.3-12.3 Eosinophil % (test stdt=200-8) 0.7 % 0-4.4 Basophil % (test cldl=33092-3) 1.0 % 0-1.3 Absolute neutrophil count (test zstk=201-6) 4.1 1.8-8.0 Absolute lymphocyte count (test szoz=50973-5) 2.8 0.7-4.9 Absolute monocyte count (test xdvb=187-3) 0.5 0.1-1.3 Absolute Eosinophils (test code=EOA) 0.1 0-0.5 Absolute Basophils (test code=BASA) 0.1 0-0.5
[2018-07-29 22:28] LABS: BASOPHILS % 0.4 % (0.0-1.0); EOSINOPHILS # (AUTO) 0.1 (0.0-0.4); EOSINOPHILS % 0.8 % (0.0-6.0); HEMATOCRIT 36.2 % (38.2-49.6); HEMOGLOBIN 12.2 g/dL (14.0-18.0); LYMPHOCYTES # (AUTO) 2.7 (1.0-3.2); LYMPHOCYTES % 35.6 % (18.0-39.1); MEAN CORPUSCULAR HGB CONC 33.7 g/dL (31-35); MONOCYTES # (AUTO) 0.5 (0.2-0.8); MONOCYTES % 6.1 % (4.4-11.3); NEUTROPHILS # (AUTO) 4.3 (2.1-6.9); NEUTROPHILS % 56.7 % (38.7-80.0); PLATELET COUNT 167 x10e3/uL (140-360); RED BLOOD COUNT 4.21 x10e6/uL (4.3-5.7); RED CELL DISTRIBUTION WIDTH 13.2 % (11.7-14.4)
[2018-07-29 22:43] LABS: BILIRUBIN,URINE NEGATIVE (NEGATIVE); CLARITY,URINE CLEAR (CLEAR); COLOR,URINE YELLOW (YELLOW); EPITHELIAL CELLS,URINE FEW /LPF; KETONES,URINE NEGATIVE (NEGATIVE); LEUKOCYTE ESTERASE ,URINE TRACE (NEGATIVE); NITRITE,URINE NEGATIVE (NEGATIVE); PROTEIN,URINE DIPSTICK NEGATIVE (NEGATIVE); RBC,URINE 0-5 /HPF (0-5); URINE UROBILINOGEN 0.2 mg/dL (0.2 - 1)
[2018-07-29] MEDS ORDERED: CIPROFLOXACIN500 MG PO (22:43)
[2018-07-29] MEDS ORDERED: ZOLPIDEM TARTRA10 MG PO (22:43)
[2018-07-29] MEDS ORDERED: GABAPENTIN400 MG PO (22:43)
[2018-07-29] MEDS ORDERED: OMEPRAZOLE40 MG PO (22:43)
--- NOTE | 2018-07-29 22:56 | Diagnostic Imaging Report ---
EXAMINATION: CHEST 2 VIEWS INDICATION: CHEST PAIN X3 DAYS COMPARISON: None FINDINGS: PA and lateral views TUBES and LINES: None. LUNGS: Lungs are well inflated. Lungs are clear. There is no evidence of pneumonia or pulmonary edema. PLEURA: No pleural effusion or pneumothorax. HEART AND MEDIASTINUM: The cardiomediastinal silhouette is unremarkable. BONES AND SOFT TISSUES: No acute osseous lesion. Soft tissues are unremarkable. UPPER ABDOMEN: No free air under the diaphragm. IMPRESSION: No acute thoracic abnormality. Signed by: DR. Live Rodrigues MD on 07/29/2018 10:52 PM
[2018-07-29 23:32] LABS: ALANINE AMINOTRANSFERASE 14 IU/L (0-55); ALBUMIN 3.9 g/dL (3.5-5.0); ALBUMIN/GLOBULIN RATIO 1.1 (0.8-2.0); ALKALINE PHOSPHATASE 74 IU/L (40-150); ANION GAP 15.5 mmol/L (8-16); BLOOD UREA NITROGEN 22 mg/dL (7-26); BUN/CREATININE RATIO 21 (6-25); CALCIUM 9.3 mg/dL (8.4-10.2); CARBON DIOXIDE 25 mmol/L (22-29); CHLORIDE 107 mmol/L (98-107); CREATINE KINASE 101 IU/L (30-200); CREATININE, SERUM 1.04 mg/dL (0.72-1.25); EST GLOMERULAR FILTRATION RATE > 60 ML/MIN (60-); GLUCOSE 103 mg/dL (74-118); POTASSIUM 4.5 mmol/L (3.5-5.1); SODIUM 143 mmol/L (136-145)
[2018-07-30 01:03] VITALS: BP 101/48
== END 2018-07-30 01:05 | disposition home or self-care (01) ==
LOC: ER 21:59
DX: R07.89 Other chest pain (principal)
CPT/HCPCS: 36415; 71046; 80053; 81001; 82550; 82553; 83880; 84484; 85025; 85379; 93005; 99284